=== PATIENT | male | born 1980 | race Caucasian/White ===

== ENCOUNTER 2021-12-16 17:08 | Emergency (ER) | payer SELFPAY ==
[2021-12-16 17:27] VITALS: BMI 29.9
[2021-12-16 19:31] LABS: EPI CELLS 4 /uL (0-25.1); HYALINE CASTS 1 /uL (0-3.1); PH,URINE 6.5 (5.0-8.0); URINE APPEARANCE TURBID; URINE BACTERIA 1106 /uL (0-1359); URINE BILIRUBIN NEGATIVE (NEGATIVE); URINE COLOR DK YELLOW; URINE GLUCOSE (UA) NEGATIVE (NEGATIVE); URINE KETONE TRACE (NEGATIVE); URINE LEUK ESTERASE 3+ (NEGATIVE); URINE NITRITE NEGATIVE (NEGATIVE); URINE PROTEIN 2+ (NEGATIVE); URINE RBC 27 /uL (0-23.9); URINE WBC 2315 /uL (0-25.8)
[2021-12-16 20:08] VITALS: BP 132/82; PULSE 86; TEMP 98.4
== END 2021-12-16 20:00 | disposition home or self-care (01) ==
LOC: JER 17:08
DX: N45.1 Epididymitis (principal)
CPT/HCPCS: 36415; 76870-TC; 81003; 87086; 87186; 87491; 87591; 99284-25

== ENCOUNTER 2023-04-29 18:57 | Emergency (ER) | payer OTHER ==
[2023-04-29 19:06] VITALS: BP 146/89; PULSE 81; RESP 16; TEMP 98.7; BMI 27.3
[2023-04-29 20:38] LABS: EPI CELLS 1 /uL (0-25.1); HYALINE CASTS 0 /uL (0-3.1); URINE APPEARANCE CLEAR; URINE BILIRUBIN 1+ (NEGATIVE); URINE COLOR ORANGE; URINE GLUCOSE (UA) NEGATIVE (NEGATIVE); URINE KETONE NEGATIVE (NEGATIVE); URINE LEUK ESTERASE 2+ (NEGATIVE); URINE NITRITE POSITIVE (NEGATIVE); URINE PROTEIN 1+ (NEGATIVE); URINE RBC 27 /uL (0-23.9); URINE WBC 1062 /uL (0-25.8)
[2023-04-29] MEDS ORDERED: SULFAMETHOXAZOLE/TRIMETHOPRIM 800MG/160MG D.S. TABLET PO ONE (20:43)
[2023-04-29] MEDS ORDERED: SULFAMETHOXAZOLE/TRIMETHOPRIM 800MG/160MG D.S. TABLET ONE (20:54)
[2023-04-29 22:25] LABS: YEAST MODERATE (NEGATIVE)
== END 2023-04-29 21:05 | disposition home or self-care (01) ==
LOC: JERFT 18:57
DX: R35.0 Frequency of micturition (principal); N30.01 Acute cystitis with hematuria
CPT/HCPCS: 81003; 87086; 87186; 99283-25